=== PATIENT | female | born 1970 | race Caucasian/White ===

== ENCOUNTER 2017-06-26 12:13 | Emergency (ER) | payer MEDICAID ==
[~2017-06-26] VITALS: Ht 162.6 cm; Wt 72.6 kg
[2017-06-26 13:25] VITALS: BP 120/78
== END 2017-06-26 14:20 | disposition home or self-care (01) ==
LOC: ER 12:13
DX: M79.641 Pain in right hand (principal); E78.5 Hyperlipidemia, unspecified; Z88.6 Allergy status to analgesic agent
CPT/HCPCS: 29125; 73130